=== PATIENT | female | born 1965 | race Caucasian/White ===

== ENCOUNTER 2020-07-31 15:58 | Emergency (ER) | payer OTHER ==
[~2020-07-31] VITALS: Ht 160 cm; Wt 81.7 kg
[~2020-07-31 15:58] MED LIST: DESV50 PO
[2020-07-31] MEDS ORDERED: AMOCLA875 PO (22:24)
== END 2020-07-31 22:47 | disposition home or self-care (01) ==
LOC: ER 15:58
DX: L03.011 Cellulitis of right finger (principal); F41.9 Anxiety disorder, unspecified; Z88.1 Allergy status to other antibiotic agents; Z79.899 Other long term (current) drug therapy
CPT/HCPCS: 26010; 99282-25; A9270

== ENCOUNTER 2020-08-12 09:07 | Day surgery (SDC) | payer OTHER ==
[~2020-08-12] VITALS: Ht 160 cm; Wt 80.1 kg
[~2020-08-12 09:07] MED LIST changes: +AMOCLA875 PO
[2020-08-12] MEDS ORDERED: Prinivil10 MG PO (10:02)
[2020-08-12] MEDS ORDERED: LISI20 PO (10:03)
[2020-08-12] MEDS ORDERED: TRAM50 PO (10:04)
[2020-08-12] MEDS ORDERED: ZOCOR20 MG PO (10:05)
[2020-08-12] MEDS ORDERED: ASPI81CH PO (10:05)
[2020-08-12] MEDS ORDERED: FISH OIL 1,2001 EAC7 (10:06)
[2020-08-12] MEDS ORDERED: Colace100 MG PO (10:06)
== END 2020-08-12 12:55 | disposition home or self-care (01) ==
LOC: ORSCSDS 09:07
PROVIDERS: Orthopaedic Surgery
PROC: 0X6N0Z3 Detachment at Right Index Finger, Low, Open Approach (ICD-10-PCS; principal; 2020-08-12 10:30)
DX: M00.841 Arthritis due to other bacteria, right hand (principal); I10 Essential (primary) hypertension; Z79.899 Other long term (current) drug therapy
CPT/HCPCS: 87070; 87071; 87075; 87205; 88305; 88311; J0690; J2250; J2405; J3010; J7120

== ENCOUNTER 2020-12-28 09:21 | Day surgery (SDC) | payer OTHER ==
[~2020-12-28] VITALS: Ht 160 cm; Wt 84.9 kg
[~2020-12-28 09:21] MED LIST changes: +ASPI81CH PO; +Aspir 8181 MG PO; +Colace100 MG PO; +ESTROVEN CMPLT M4 MG PO; +FISH OIL 1,2001 EAC7 PO; +LISI20 PO; +Prinivil10 MG PO; +TRAM50 PO; +ZOCOR20 MG PO
== END 2020-12-28 13:47 | disposition home or self-care (01) ==
LOC: ORSCSDS 09:21
PROVIDERS: Orthopaedic Surgery
PROC: 0SBD4ZZ Excision of Left Knee Joint, Percutaneous Endoscopic Approach (ICD-10-PCS; principal; 2020-12-28 11:15)
DX: M17.12 Unilateral primary osteoarthritis, left knee (principal); M94.262 Chondromalacia, left knee; I10 Essential (primary) hypertension; Z79.899 Other long term (current) drug therapy
CPT/HCPCS: J0171; J0690; J1885; J2250; J2405; J2704; J3010; J7120

== ENCOUNTER 2021-09-04 09:56 | Day surgery (SDC) | payer OTHER ==
[~2021-09-04] VITALS: Ht 160 cm; Wt 89.8 kg
== END 2021-09-04 11:30 | disposition home or self-care (01) ==
LOC: ORSCSDS 09:56
PROVIDERS: Internal Medicine Gastroenterology
PROC: 0DBK8ZX Excision of Ascending Colon, Via Natural or Artificial Opening Endoscopic, Diagnostic (ICD-10-PCS; principal; 2021-09-04 11:30)
PROC: 0DBN8ZX Excision of Sigmoid Colon, Via Natural or Artificial Opening Endoscopic, Diagnostic (ICD-10-PCS; principal; 2021-09-04 11:30)
DX: Z12.11 Encounter for screening for malignant neoplasm of colon (principal); Z86.010 Personal history of colon polyps; D12.2 Benign neoplasm of ascending colon; K63.5 Polyp of colon; K57.30 Diverticulosis of large intestine without perforation or abscess without bleeding; K64.8 Other hemorrhoids; E78.5 Hyperlipidemia, unspecified; I10 Essential (primary) hypertension; K64.4 Residual hemorrhoidal skin tags; Z79.899 Other long term (current) drug therapy
CPT/HCPCS: 88305; J2704; J7120

== ENCOUNTER 2022-07-17 12:13 | Day surgery (SDC) | payer OTHER ==
[~2022-07-17] VITALS: Ht 162.6 cm; Wt 92.7 kg
--- NOTE | 2022-07-17 18:43 | NUR ---
1740 ARRIVE TO ROOM 223 WITH FAMILY ON BEDSIDE. PT AOX4. UNABLE TO MOVE BLE, VERY MINIMAL MOVEMENT IN WIGGLING TOES. REPORTS NUMBNESS DENIES TINGLING. DECREASE SENSATION ON BLE. PT REPORTS 1/10 PAIN LEVEL. LUNGS ARE CLEAR. PT ON ROOM AIR. VSS. TOLERATING PO INTAKE DENIES NAUSEA AND VOMITING. TXA ADMINISTERED. LR INFUSING. CALL LIGHT WITHIN REACH. REORIENT IN ROOM. WILL CONTINUE TO MONITOR AND WILL PROVIDE REPORT TO ONCOMING NURSE
--- NOTE | 2022-07-18 05:01 | NUR ---
SHIFT SUMMARY POD1 FOR L TKA WITH DR. BOOGIE. GARCIA WITH ELIJAH WRAP C/D/I. POLAR PACK TO L KNEE. AMBULATING WITH 1 ASSIST GB, FWW. DENIES N/T, N/V. TOLERATES PO INTAKE. VOIDING REGULARLY. IV SALINE LOCKED. PAIN MANAGED WELL WITH 5MG OXY TORADOL AND TYLENOL. PLAN FOR THERAPY IN AM AND POSSIBLE DISCHARGE HOME. VSS, CALL LIGHT IN REACH, WILL REPORT TO DAY RN.
[2022-07-18 05:29] LABS: BASOPHILS ABSOLUTE AUTO 0.03 K/mm3 (0.00-0.23); BASOPHILS PERCENT AUTO 0 % (0-2); EOSINOPHILS PERCENT AUTO 0 % (0-6); Hematocrit 35.5 % (33.0-51.0); IMMATURE GRAN ABSOLUTE AUTO 0.05 K/mm3 (0.00-0.10); IMMATURE GRAN PERCENT AUTO 0 % (0-1); LYMPHOCYTES ABSOLUTE AUTO 1.84 K/mm3 (0.84-5.20); LYMPHOCYTES PERCENT AUTO 16 % (21-46); MONOCYTES ABSOLUTE AUTO 0.53 K/mm3 (0.16-1.47); MONOCYTES PERCENT AUTO 5 % (4-13); Mean Corpuscular HGB 28.7 pg (26.0-34.0); Mean Corpuscular HGB Conc 33.8 g/dL (31.5-36.5); Mean Corpuscular Volume 85 fL (80-100); Mean Platelet Volume 10.5 fL (9.1-12.4); NEUTROPHILS ABSOLUTE AUTO 9.05 K/mm3 (1.96-9.15); NEUTROPHILS PERCENT AUTO 79 % (41-73); Platelet Count 183 K/mm3 (150-400); RDW Coefficient Variation 12.2 % (11.7-14.2); RDW Standard Deviation 37.4 fL (35.1-46.3); Red Blood Cell Count 4.18 M/mm3 (3.80-5.20)
[2022-07-18 06:10] LABS: Bun/Creatinine Ratio 16.1 (12.0-20.0); Calcium, Blood 8.4 mg/dL (8.5-10.1); Creatinine, Blood 0.62 mg/dL (0.40-1.00); Potassium, Blood 4.1 mmol/L (3.5-5.5)
[2022-07-18] MEDS ORDERED: ASPI81CH PO (08:22)
[2022-07-18] MEDS ORDERED: Percocet 5-3251 EACH PO (08:25)
--- NOTE | 2022-07-18 10:58 | NUR ---
DISCHARGE PT HAS CLEARED THERAPY. PAIN WELL CONTROLLED PER EMAR. AQUACEL IN PLACE OVER, C/D/I. EATING, DRINKING, & VOIDING WELL. DISCUSSED DISCHARGE INSTRUCTIONS WITH PATIENT. DRESSINGS, DISCHARGE INSTRUCTIONS, & POLAR PACK SENT WITH PATIENT. ESCORTED OUT VIA W/C.
== END 2022-07-18 11:00 | disposition home or self-care (01) ==
LOC: ORSCMMR 12:13 → ORD 14:30 → ORSCMMR 14:30 → ORD 15:00 → SURS 18:15 → ORSCMMR 07-18 11:00
PROVIDERS: Orthopaedic Surgery
PROC: 0SRD0JA Replacement of Left Knee Joint with Synthetic Substitute, Uncemented, Open Approach (ICD-10-PCS; principal; 2022-07-17 15:00)
DX: M17.0 Bilateral primary osteoarthritis of knee (principal); E78.5 Hyperlipidemia, unspecified; I10 Essential (primary) hypertension; E03.9 Hypothyroidism, unspecified; Z79.899 Other long term (current) drug therapy; E66.9 Obesity, unspecified; Z68.36 Body mass index [BMI] 36.0-36.9, adult
CPT/HCPCS: 36415; 73560-LT; 80048; 85025; 97110; 97116; 97161; 97530; A9270; C1776; J0171; J0690; J0735; J1100; J1885; J2250; J2704; J2795; J3010; J7120

== ENCOUNTER 2022-12-24 04:55 | Emergency (ER) | payer OTHER ==
[~2022-12-24] VITALS: Ht 170.2 cm; Wt 74.8 kg
[~2022-12-24 04:55] MED LIST changes: +Percocet 5-3251 EACH PO
== END 2022-12-24 05:10 | disposition home or self-care (01) ==
LOC: ER 04:55
DX: T16.1XXA Foreign body in right ear, initial encounter (principal); I10 Essential (primary) hypertension; E78.5 Hyperlipidemia, unspecified; X58.XXXA Exposure to other specified factors, initial encounter; Z88.1 Allergy status to other antibiotic agents; Z79.899 Other long term (current) drug therapy; Z79.82 Long term (current) use of aspirin
CPT/HCPCS: 69200; 99282-25

== ENCOUNTER → 2023-12-17 | Outpatient (CLI) | payer OTHER | END | disposition home or self-care (01) | LOC: LAB SHORT 18:38 → LAB 18:38 | DX: N39.0 Urinary tract infection, site not specified (principal) | CPT/HCPCS: 87086 ==